=== PATIENT | female | born 1990 | race Caucasian/White ===

== ENCOUNTER 2016-04-08 16:19 | Emergency (ER) | payer OTHER ==
[~2016-04-08] VITALS: Ht 162.6 cm; Wt 95.8 kg
[~2016-04-08 16:19] MED LIST: MOTRIN600 MG PO; MOTRIN800 MG PO; NAPROSYN500 MG PO; PEN-VEE K,VEET500 MG PO; ULTRAM50 MG PO; ZOFRAN4 MG PO
[2016-04-08 17:05] LABS: HEMATOCRIT 42.8 % (36.0-46.0); MCH 30.7 PG (29.0-34.0); MCHC 33.9 G/DL (30.0-36.0); MCV 90.7 FL (83-99); MEAN PLAT.VOLUME 10.4 uM^3 (9.5-12.4); PLATELET COUNT 320 K/uL (156-360); RBC DIS.WIDTH-SD 38.8 % (39-53); RED BLOOD COUNT 4.72 M/uL (3.80-5.20); WHITE BLOOD COUNT 12.4 K/uL (4.1-10.2)
[2016-04-08 17:43] LABS: ANION GAP 10 MEQ/L (2-14); CHLORIDE 104 MEQ/L (99-109); SAMPLE HEMOLYSIS CHECK 0; SAMPLE ICTERIC CHECK 0; SAMPLE LIPEMIA CHECK 0; SODIUM 140 MEQ/L (136-147); TOTAL BILIRUBIN 0.5 MG/DL (0.0-1.0)
[2016-04-08 17:48] LABS: ALKALINE PHOSPHATASE 63 IU/L (3-129); GFR ESTIMATE (CALCULATED) > 59 mL/min/; GLUCOSE 99 mg/dL (70-99); LIPASE 13 U/L (1.0-51.0); UREA NITROGEN (BUN) 9 mg/dL (9-23)
[2016-04-08 17:59] LABS: ADD MIUA? YES; BILIRUBIN NEGATIVE; BLOOD SMALL; COLOR DK YELLOW ((YELLOW)); GLUCOSE (STRIP) NEGATIVE; KETONES NEGATIVE; LEUKOCYTES NEGATIVE; NITRITE NEGATIVE; PROTEIN (STRIP) NEGATIVE; SPECIFIC GRAVITY 1.028 (1.000-1.030); UROBILINOGEN 0.2 MG/DL (0.2-1.0)
[2016-04-08 18:37] LABS: QUANTITATIVE HCG < 4.0 MIU/ML
[2016-04-08 18:54] LABS: BACTERIA 2+; CASTS NONE SEEN /LPF; CRYSTALS NONE SEEN; EPITHELIAL CELLS RARE; MUCUS 3+; UCUL ADDED? NO; WHITE BLOOD CELLS 0-5 /HPF (0-5)
[2016-04-08] MEDS ORDERED: TRAMADOL HCL50 MG PO (20:01)
[2016-04-08] MEDS ORDERED: CIPRO500 MG PO (20:01)
[2016-04-08 20:13] VITALS: BP 117/64
== END 2016-04-08 20:14 | disposition home or self-care (01) ==
LOC: EME 16:19
DX: K52.9 Noninfective gastroenteritis and colitis, unspecified (principal); F17.200 Nicotine dependence, unspecified, uncomplicated
CPT/HCPCS: 74177; 76856; 80053; 81003; 83690; 84702; 85027; 99281; 99284; J7030

== ENCOUNTER 2016-05-30 20:19 | Emergency (ER) | payer OTHER ==
[~2016-05-30] VITALS: Ht 162.6 cm; Wt 99.9 kg
[~2016-05-30 20:19] MED LIST changes: +CIPRO500 MG PO; +TRAMADOL HCL50 MG PO
[2016-05-30 20:55] LABS: HEMATOCRIT 41.2 % (36.0-46.0); MCH 30.3 PG (29.0-34.0); MCV 89.2 FL (83-99); PLATELET COUNT 315 K/uL (156-360); RBC DIS.WIDTH-CV 12.2 % (11.8-14.6); RED BLOOD COUNT 4.62 M/uL (3.80-5.20); WHITE BLOOD COUNT 15.4 K/uL (4.1-10.2)
[2016-05-30 20:56] LABS: ADD MIUA? YES; BILIRUBIN NEGATIVE; BLOOD SMALL; COLOR YELLOW ((YELLOW)); GLUCOSE (STRIP) NEGATIVE; KETONES NEGATIVE; LEUKOCYTES NEGATIVE; NITRITE NEGATIVE; PROTEIN (STRIP) NEGATIVE; SPECIFIC GRAVITY 1.019 (1.000-1.030); UROBILINOGEN 0.2 MG/DL (0.2-1.0)
[2016-05-30 21:04] LABS: CHLORIDE 107 mEq/L (99-109); POTASSIUM 4.1 mEq/L (3.7-5.4); SODIUM 141 mEq/L (136-147)
[2016-05-30 21:05] LABS: BACTERIA NONE SEEN /HPF; EPITHELIAL CELLS RARE /HPF; MUCUS TRACE /LPF; RED BLOOD CELLS 0-5 /HPF (0-5); UCUL ADDED? NO; WHITE BLOOD CELLS 0-5 /HPF (0-5)
[2016-05-30 21:07] LABS: GLUCOSE 88 mg/dL (70-99)
[2016-05-30 21:08] LABS: ANION GAP 11 MEQ/L (2-14)
[2016-05-30 21:09] LABS: TOTAL BILIRUBIN 0.3 mg/dL (0.0-1.0)
[2016-05-30 21:10] LABS: ALKALINE PHOSPHATASE 66 IU/L (3-129); GFR ESTIMATE (CALCULATED) > 59 mL/min/
[2016-05-30 21:11] LABS: UREA NITROGEN (BUN) 8 mg/dL (9-23)
[2016-05-30 21:19] LABS: QUANTITATIVE HCG < 4.0 MIU/ML
[2016-05-30 22:30] VITALS: BP 129/71
== END 2016-05-30 22:31 | disposition home or self-care (01) ==
LOC: EME 20:19
DX: J02.9 Acute pharyngitis, unspecified (principal); B34.9 Viral infection, unspecified; R10.9 Unspecified abdominal pain; R11.0 Nausea; R19.7 Diarrhea, unspecified; M54.5 Low back pain; R51 Headache; R05 Cough; F17.200 Nicotine dependence, unspecified, uncomplicated
CPT/HCPCS: 80053; 81003; 84702; 85027; 87651 90; 99281; 99284; J1885

== ENCOUNTER 2016-06-29 00:22 | Emergency (ER) | payer OTHER ==
[~2016-06-29] VITALS: Ht 162.6 cm; Wt 100.0 kg
[2016-06-29] MEDS ORDERED: MOTRIN800 MG PO (01:59)
[2016-06-29 02:26] VITALS: BP 117/71
== END 2016-06-29 02:27 | disposition home or self-care (01) ==
LOC: EME 00:22
DX: S93.601A Unspecified sprain of right foot, initial encounter (principal); W22.8XXA Striking against or struck by other objects, initial encounter
CPT/HCPCS: 73630; 99281; 99283

== ENCOUNTER 2016-07-19 23:47 | Emergency (ER) | payer OTHER ==
[~2016-07-19] VITALS: Ht 162.6 cm; Wt 102.3 kg
[2016-07-20 00:23] LABS: ADD MIUA? YES; BILIRUBIN NEGATIVE; BLOOD SMALL; COLOR STRAW ((YELLOW)); GLUCOSE (STRIP) NEGATIVE; KETONES NEGATIVE; LEUKOCYTES NEGATIVE; NITRITE NEGATIVE; PROTEIN (STRIP) NEGATIVE; SPECIFIC GRAVITY 1.004 (1.000-1.030); UROBILINOGEN 0.2 MG/DL (0.2-1.0)
[2016-07-20 00:30] LABS: BACTERIA NONE SEEN /HPF; EPITHELIAL CELLS RARE /HPF; MUCUS NONE SEEN /LPF; RED BLOOD CELLS 0-5 /HPF (0-5); UCUL ADDED? NO; WHITE BLOOD CELLS 0-5 /HPF (0-5)
[2016-07-20] MEDS ORDERED: SKELAXIN800 MG PO (02:08)
[2016-07-20] MEDS ORDERED: TORADOL10 MG PO (02:08)
[2016-07-20 02:18] VITALS: BP 134/76
== END 2016-07-20 02:20 | disposition home or self-care (01) ==
LOC: EME 23:47 → EXP 23:47
DX: M54.41 Lumbago with sciatica, right side (principal); F17.200 Nicotine dependence, unspecified, uncomplicated
CPT/HCPCS: 81003; 99281; 99284; J1885

== ENCOUNTER 2016-09-23 01:32 | Emergency (ER) | payer OTHER ==
[~2016-09-23] VITALS: Ht 165.1 cm; Wt 100.1 kg
[~2016-09-23 01:32] MED LIST changes: +SKELAXIN800 MG PO; +TORADOL10 MG PO
[2016-09-23] MEDS ORDERED: PEN-VEE K,VEET500 MG PO (04:40)
[2016-09-23 05:01] VITALS: BP 130/87
== END 2016-09-23 05:01 | disposition home or self-care (01) ==
LOC: EME 01:32
PROC: 3E0T3BZ Introduction of Anesthetic Agent into Peripheral Nerves and Plexi, Percutaneous Approach (ICD-10-PCS; principal; 2016-09-23)
DX: K04.7 Periapical abscess without sinus (principal); R51 Headache; R11.0 Nausea; F17.200 Nicotine dependence, unspecified, uncomplicated
CPT/HCPCS: 99281; 99283; S0020

== ENCOUNTER 2016-11-11 22:02 | Emergency (ER) | payer OTHER ==
[~2016-11-11] VITALS: Ht 162.6 cm; Wt 100.0 kg
[2016-11-12 00:38] LABS: POINT-OF-CARE METER ID UU13113800
[2016-11-12] MEDS ORDERED: NYSTATIN15 GM TP (01:32)
[2016-11-12 02:12] VITALS: BP 132/78
[2016-11-12 12:54] LABS: CHLAMYDIA TRACHOMATIS NEGATIVE; NEISSERIA GONORRHOEAE NEGATIVE
== END 2016-11-12 02:17 | disposition home or self-care (01) ==
LOC: EME 22:02 → RME 22:02
PROVIDERS: Physician Assistant
DX: B37.3 Candidiasis of vulva and vagina (principal); N72 Inflammatory disease of cervix uteri; N83.202 Unspecified ovarian cyst, left side; F17.200 Nicotine dependence, unspecified, uncomplicated
CPT/HCPCS: 82948; 87210; 87491; 87591; 99281; 99285; J0696

== ENCOUNTER 2017-02-12 20:04 | Emergency (ER) | payer OTHER ==
[~2017-02-12] VITALS: Ht 162.6 cm; Wt 99.7 kg
[~2017-02-12 20:04] MED LIST changes: +NYSTATIN15 GM TP
[2017-02-12] MEDS ORDERED: ZOFRAN ODT4 MG PO (21:10)
[2017-02-12] MEDS ORDERED: MOTRIN600 MG PO (21:10)
[2017-02-12 21:29] VITALS: BP 133/82
== END 2017-02-12 21:29 | disposition home or self-care (01) ==
LOC: EME 20:04 → RME 20:04
DX: J02.8 Acute pharyngitis due to other specified organisms (principal); R11.2 Nausea with vomiting, unspecified; F17.200 Nicotine dependence, unspecified, uncomplicated
CPT/HCPCS: 87651 90; 99281; 99285

== ENCOUNTER 2017-03-29 18:08 | Emergency (ER) | payer OTHER ==
[~2017-03-29] VITALS: Ht 162.6 cm; Wt 100.4 kg
[~2017-03-29 18:08] MED LIST changes: +ZOFRAN ODT4 MG PO
[2017-03-29 18:19] VITALS: BP 132/83
[2017-03-29 19:08] LABS: HEMATOCRIT 43.4 % (36.0-46.0); HEMOGLOBIN 14.6 G/DL (11.9-15.5); MCH 30.2 PG (29.0-34.0); MCHC 33.6 G/DL (30.0-36.0); MCV 89.9 FL (83-99); PLATELET COUNT 328 K/uL (156-360); RBC DIS.WIDTH-CV 12.2 % (11.8-14.6); RBC DIS.WIDTH-SD 40.1 % (39-53); RED BLOOD COUNT 4.83 M/uL (3.80-5.20); WHITE BLOOD COUNT 14.1 K/uL (4.1-10.2)
[2017-03-29 19:28] LABS: ALBUMIN 4.2 g/dL (3.2-4.8); CHLORIDE 105 mEq/L (99-109); SODIUM 138 mEq/L (136-147)
[2017-03-29 19:31] LABS: GLUCOSE 81 mg/dL (70-99); TOTAL PROTEIN 7.2 g/dL (6.4-8.3)
[2017-03-29 19:33] LABS: TOTAL BILIRUBIN 0.4 mg/dL (0.0-1.0)
[2017-03-29 19:34] LABS: ALKALINE PHOSPHATASE 77 IU/L (3-129); CREATININE 0.7 mg/dL (0.6-1.3); GFR ESTIMATE (CALCULATED) > 59 mL/min/
[2017-03-29 19:35] LABS: UREA NITROGEN (BUN) 9 mg/dL (9-23)
[2017-03-29 19:36] LABS: AST (GOT) 23 IU/L (2-34)
[2017-03-29 19:37] LABS: ALT (GPT) 35 IU/L (3-49)
[2017-03-29 19:40] LABS: QUANTITATIVE HCG < 4.0 MIU/ML
[2017-03-29 20:08] LABS: APPEARANCE SL.HAZY ((CLEAR)); BILIRUBIN NEGATIVE; BLOOD SMALL; COLOR YELLOW ((YELLOW)); GLUCOSE (STRIP) NEGATIVE; KETONES NEGATIVE; LEUKOCYTES NEGATIVE; NITRITE NEGATIVE; PROTEIN (STRIP) NEGATIVE; SPECIFIC GRAVITY 1.013 (1.000-1.030); UROBILINOGEN 0.2 MG/DL (0.2-1.0)
[2017-03-29 20:12] LABS: BACTERIA RARE /HPF; EPITHELIAL CELLS 1+ /HPF; MUCUS NONE SEEN /LPF; RED BLOOD CELLS 0-5 /HPF (0-5); UCUL ADDED? NO; WHITE BLOOD CELLS 0-5 /HPF (0-5)
[2017-03-29] MEDS ORDERED: LEVAQUIN750 MG PO (20:23)
== END 2017-03-29 21:10 | disposition home or self-care (01) ==
LOC: EME 18:08
DX: N12 Tubulo-interstitial nephritis, not specified as acute or chronic (principal); R11.2 Nausea with vomiting, unspecified; F17.200 Nicotine dependence, unspecified, uncomplicated
CPT/HCPCS: 80053; 81003; 84702; 85027; 99281; 99284

== ENCOUNTER 2017-04-26 20:36 | Emergency (ER) | payer OTHER ==
[~2017-04-26] VITALS: Ht 162.6 cm; Wt 97.8 kg
[~2017-04-26 20:36] MED LIST changes: +LEVAQUIN750 MG PO
[2017-04-26] MEDS ORDERED: NAPROSYN500 MG PO (23:02)
[2017-04-26 23:09] VITALS: BP 116/68
== END 2017-04-26 23:11 | disposition home or self-care (01) ==
LOC: EME 20:36
DX: M94.0 Chondrocostal junction syndrome [Tietze] (principal); F17.200 Nicotine dependence, unspecified, uncomplicated
CPT/HCPCS: 71046; 93005; 99281; 99284; J1885

== ENCOUNTER 2017-07-16 15:02 | Emergency (ER) | payer OTHER ==
[~2017-07-16] VITALS: Ht 162.6 cm; Wt 97.4 kg
[2017-07-16 15:46] LABS: APPEARANCE SL.HAZY ((CLEAR)); BILIRUBIN NEGATIVE; BLOOD SMALL; COLOR YELLOW ((YELLOW)); GLUCOSE (STRIP) NEGATIVE; KETONES NEGATIVE; LEUKOCYTES NEGATIVE; NITRITE NEGATIVE; PROTEIN (STRIP) NEGATIVE; SPECIFIC GRAVITY 1.017 (1.000-1.030); UROBILINOGEN 0.2 MG/DL (0.2-1.0)
[2017-07-16 15:50] LABS: BACTERIA RARE /HPF; EPITHELIAL CELLS 1+ /HPF; MUCUS TRACE /LPF; RED BLOOD CELLS 0-5 /HPF (0-5); WHITE BLOOD CELLS 0-5 /HPF (0-5)
[2017-07-16 17:44] VITALS: BP 118/69
[2017-07-16 17:49] LABS: SOURCE SWAB
== END 2017-07-16 17:45 | disposition home or self-care (01) ==
LOC: EME 15:02
PROVIDERS: Nurse Practitioner Family
DX: N89.8 Other specified noninflammatory disorders of vagina (principal); Z20.2 Contact with and (suspected) exposure to infections with a predominantly sexual mode of transmission; F17.200 Nicotine dependence, unspecified, uncomplicated
CPT/HCPCS: 81003; 87210; 87491; 87591; 99281; 99285; J0696

== ENCOUNTER 2017-08-23 12:13 | Emergency (ER) | payer OTHER ==
[~2017-08-23] VITALS: Ht 162.6 cm; Wt 104.8 kg
[2017-08-23 13:15] LABS: APPEARANCE SL.HAZY ((CLEAR)); BILIRUBIN NEGATIVE; BLOOD SMALL; COLOR YELLOW ((YELLOW)); GLUCOSE (STRIP) NEGATIVE; KETONES NEGATIVE; LEUKOCYTES MODERATE; NITRITE NEGATIVE; PROTEIN (STRIP) NEGATIVE; UROBILINOGEN 0.2 MG/DL (0.2-1.0)
[2017-08-23 13:17] LABS: HEMATOCRIT 39.9 % (36.0-46.0); HEMOGLOBIN 14.1 G/DL (11.9-15.5); MCHC 35.3 G/DL (30.0-36.0); MCV 87.7 FL (83-99); PLATELET COUNT 301 K/uL (156-360); RBC DIS.WIDTH-SD 38.8 % (39-53); RED BLOOD COUNT 4.55 M/uL (3.80-5.20); WHITE BLOOD COUNT 15.5 K/uL (4.1-10.2)
[2017-08-23 13:20] LABS: BACTERIA RARE /HPF; EPITHELIAL CELLS 2+ /HPF; MUCUS TRACE /LPF; UCUL ADDED? NO; WHITE BLOOD CELLS 0-5 /HPF (0-5)
[2017-08-23 13:25] LABS: ALBUMIN 4.2 g/dL (3.2-4.8); CHLORIDE 107 mEq/L (99-109); SODIUM 139 mEq/L (136-147)
[2017-08-23 13:27] LABS: GLUCOSE 90 mg/dL (70-99)
[2017-08-23 13:28] LABS: TOTAL PROTEIN 7.3 g/dL (6.4-8.3)
[2017-08-23 13:29] LABS: TOTAL BILIRUBIN 0.2 mg/dL (0.0-1.0)
[2017-08-23 13:31] LABS: ALKALINE PHOSPHATASE 81 IU/L (3-129); CREATININE 0.8 mg/dL (0.6-1.3); GFR ESTIMATE (CALCULATED) > 59 mL/min/
[2017-08-23 13:32] LABS: UREA NITROGEN (BUN) 8 mg/dL (9-23)
[2017-08-23 13:33] LABS: AST (GOT) 27 IU/L (2-34)
[2017-08-23 13:34] LABS: ALT (GPT) 41 IU/L (3-49)
[2017-08-23 13:40] LABS: QUANTITATIVE HCG < 4.0 MIU/ML
[2017-08-23] MEDS ORDERED: FLAGYL500 MG PO (13:56)
[2017-08-23] MEDS ORDERED: CIPRO500 MG PO (13:56)
[2017-08-23] MEDS ORDERED: REGLAN10 MG PO (13:56)
[2017-08-23 14:08] VITALS: BP 112/80
== END 2017-08-23 14:10 | disposition home or self-care (01) ==
LOC: EME 12:13
PROVIDERS: Nurse Practitioner Family
DX: R10.9 Unspecified abdominal pain (principal); R11.0 Nausea; R19.7 Diarrhea, unspecified; D72.829 Elevated white blood cell count, unspecified; F17.200 Nicotine dependence, unspecified, uncomplicated; Z87.42 Personal history of other diseases of the female genital tract; Z87.19 Personal history of other diseases of the digestive system
CPT/HCPCS: 80053; 81003; 82948; 84702; 85027; 87502; 99281; 99284